=== PATIENT | male | born 1995 | race Caucasian/White ===

== ENCOUNTER 2018-07-22 12:50 | Emergency (ER) | payer OTHER ==
[~2018-07-22] VITALS: Ht 188 cm; Wt 89.8 kg
[2018-07-22 14:00] VITALS: BP 138/83
--- NOTE | 2018-07-22 14:12 | NUR ---
PT AMBULATED TO ER BED 12
--- NOTE | 2018-07-22 14:15 | NUR ---
PT IS A 22 Y/O MALE WHO PRESENTS TO THE ED FOR LACERATION. PT STATES THAT HE WAS CUTTING LETTUCE AT WORK AND CUT HIS L INDEX FINGER. PT DENIES PAIN AT THIS TIME. NOTED LAC TO L INDEX FINGER, CMS INTACT. CONTROLLED LIGHT BLEEDING. PT DENIES CP, SOB, N/V/D. PT AWAKE AND ALERT, RR EVEN/UNLABORED. PT REPOSITIONED FOR COMFORT, BED IN LOWEST POSITION. ER MD DR. EUCEDA NOTIFIED. WILL CONTINUE TO MONITOR. HX: NONE RX: NONE
--- NOTE | 2018-07-22 14:19 | NUR ---
PA AT BEDSIDE
[2018-07-22] MEDS ORDERED: BACITRACIN OINT 500 UNITS/GM PKT TP ONE (14:25)
[2018-07-22] MEDS ORDERED: ACETAMINOPHEN EXTRA STRENGTH 500 MG TAB PO ONE (14:25)
--- NOTE | 2018-07-22 15:43 | NUR ---
WOUND CLEANED---BACITRACIN APPLIED TO WOUND
--- NOTE | 2018-07-22 15:43 | NUR ---
Patient discharged with v/s stable. Written and verbal after care instructions given and explained. Patient alert, oriented and verbalized understanding of instructions. Ambulatory with steady gait. All questions addressed prior to discharge. ID band removed. Patient advised to follow up with PMD. Rx of KEFLEX/MOTRIN/IBUPROFEN given. Patient educated on indication of medication including possible reaction and side effects. Opportunity to ask questions provided and answered.
[2018-07-22 15:44] VITALS: BP 131/81
== END 2018-07-22 15:43 | disposition home or self-care (01) ==
LOC: MED 12:50
DX: S61.311A Laceration without foreign body of left index finger with damage to nail, initial encounter (principal); W45.8XXA Other foreign body or object entering through skin, initial encounter; Y93.89 Activity, other specified; Y92.89 Other specified places as the place of occurrence of the external cause; Y99.0 Civilian activity done for income or pay
CPT/HCPCS: 29130; 73140; 99283; Q0092

== ENCOUNTER 2018-07-27 11:09 | Emergency (ER) | payer OTHER ==
[~2018-07-27] VITALS: Ht 182.9 cm; Wt 88.5 kg
[2018-07-27 11:11] VITALS: BP 135/72
--- NOTE | 2018-07-27 11:11 | NUR ---
PT BIBA BLS TO BED 9
[2018-07-27 11:20] VITALS: BP 133/83
--- NOTE | 2018-07-27 11:24 | NUR ---
PATIENT PRESENTS TO ED WITH WOUND RECHECK TO LEFT HAND, 2ND DIGIT. SKIN IS PINK/WARM/DRY; AAOX4 WITH EVEN AND STEADY GAIT; LUNGS CLEAR BL; HR EVEN AND REGULAR; PATIENT STATES PAIN OF 0/10 AT THIS TIME; VSS; PATIENT POSITIONED FOR COMFORT; HOB ELEVATED; BEDRAILS UP X2; BED DOWN. ER MD MADE AWARE OF PT STATUS.
--- NOTE | 2018-07-27 11:28 | NUR ---
Patient being evaluated by Dr Bird at bedside.
[2018-07-27 11:39] VITALS: BP 133/83
--- NOTE | 2018-07-27 11:40 | NUR ---
Patient discharged with v/s stable. Written and verbal after care instructions given and explained. Patient verbalized understanding. Ambulatory with steady gait. All questions addressed prior to discharge. Advised to follow up with PMD.
== END 2018-07-27 11:40 | disposition home or self-care (01) ==
LOC: MED 11:09
DX: S61.301D Unspecified open wound of left index finger with damage to nail, subsequent encounter (principal); X58.XXXD Exposure to other specified factors, subsequent encounter
CPT/HCPCS: 99281